=== PATIENT | female | born 1995 | race Caucasian/White ===

== ENCOUNTER 2021-08-27 08:38 | Emergency (ER) | payer OTHER ==
[~2021-08-27] VITALS: Ht 152.4 cm; Wt 59.0 kg
--- NOTE | 2021-08-27 08:58 | NUR ---
BIBS FOR LEFT FACE SWELLING, BITES ON BOTH HANDS, LEFT EAR AND BACK NOTICED SINCE YESTERDAY 0400. DENIES RESP DISRESS. TOOK BENADRYL YESTERDAY. IN ROOM AIR AND DENIES SOB. RESPIRATION REGULAR AND UNLABORED. WILL CONTINUE TO MONITOR THE PATIENT.
[2021-08-27] MEDS ORDERED: IV NS 0.9% 1,000 ML IV ONE (09:00)
[2021-08-27] MEDS ORDERED: FAMOTIDINE/PF INJ 20 MG/2 ML VIAL IV ONE ×2 (09:00→09:05)
[2021-08-27] MEDS ORDERED: methylPREDNISolone SOD SUCC 125 MG/2ML VIAL IV ONE (09:00)
[2021-08-27] MEDS ORDERED: diphenhydrAMINE HCL 50 MG/ML VIAL IV ONE (09:00)
--- NOTE | 2021-08-27 09:00 | NUR ---
DR PRICE AT THE BEDSIDE
[2021-08-27] MEDS ORDERED: methylPREDNISolone SOD SUCC 125 MG/2ML VIAL ONE (09:04)
[2021-08-27] MEDS ORDERED: diphenhydrAMINE HCL 50 MG/ML VIAL ONE (09:04)
[2021-08-27] MEDS ORDERED: FAMO-131 PO (10:47)
[2021-08-27] MEDS ORDERED: DIPH25CA83 PO (10:47)
[2021-08-27] MEDS ORDERED: PRED20TA PO (10:47)
[2021-08-27] MEDS ORDERED: AMOX-430 PO (10:47)
[2021-08-27 11:05] VITALS: BP 133/75
--- NOTE | 2021-08-27 11:05 | NUR ---
The patient is alert and oriented x4. Denies pain. In room air and denies SOB. Respiration regular and unlabored. IV removed. Catheter intact and site benign. Pressure and 4x4 applied to site. No bleeding noted.Patient discharged to home in stable condition. Written and verbal after care instructions given. Patient verbalizes understanding of instruction.
== END 2021-08-27 11:06 | disposition home or self-care (01) ==
LOC: ER 08:38
DX: S60.562A Insect bite (nonvenomous) of left hand, initial encounter (principal); S60.561A Insect bite (nonvenomous) of right hand, initial encounter; S00.462A Insect bite (nonvenomous) of left ear, initial encounter; T78.40XA Allergy, unspecified, initial encounter; L03.213 Periorbital cellulitis; W57.XXXA Bitten or stung by nonvenomous insect and other nonvenomous arthropods, initial encounter; Y93.89 Activity, other specified; Y92.89 Other specified places as the place of occurrence of the external cause; Y99.8 Other external cause status
CPT/HCPCS: 96361; 96374; 96375; 99284; J1200; J2930; J3490; J7030